=== PATIENT | female | born 1990 | race Caucasian/White ===

== ENCOUNTER 2023-11-23 05:30 | Inpatient (IN) | payer BC ==
[2023-11-22 11:04] LABS: Hematocrit 34.1 % (34.9-44.5); Hemoglobin 11.8 g/dL (12.0-15.5); Mean Corpuscular HGB CONC 34.6 g/dL (32.0-36.0); Mean Corpuscular Hemoglobin 32.2 pg (27.0-33.0); Mean Corpuscular Volume 92.9 fl (81.6-98.3); Mean Platelet Volume 12.2 fl (7.4-10.4); Platelet Count 201 10x3/uL (150-450); RBC Distribution Width 12.2 % (11.5-14.5); Red Blood Cell (RBC) Count 3.67 10x6/uL (3.90-5.03); White Blood Cell (WBC) Count 5.4 10x3/uL (3.5-10.5)
[2023-11-22 11:28] LABS: HBSAg Index 0.19 S/CO (0-0.99); Hep B Surf Ag Non-Reactive S/CO (NonReactive)
[2023-11-22 11:29] LABS: Syphilis Antibody Nonreactive (Nonreactive); Syphilis Antibody Index 0.04 S/CO (<1.00 Non-Reactive)
[~2023-11-23 05:30] MED LIST: Bicitra 30 ML UDCUP PO PRN; Carboprost 250 MCG/ML AMP IM PRN; Methylergonovine 0.2 MG/ML VIAL IM PRN; Misoprostol 200 MCG TAB PR PRN; Ondansetron PF 4 MG/2 ML Vial IVP PRN; Oxytocin 30 units/NS 500 ML 500 ML IV SCH; Promethazine HCl 25 MG/ML VIAL IM PRN; Tranexamic Acid 1,000 MG/10 ML VIAL IVP PRN; hydrALAZINE 20 MG/ML VIAL SLOW IVP PRN
[2023-11-23 05:55] VITALS: BMI 25.8
[2023-11-23] MEDS: Famotidine/PF 20 mg/2ml Vial SLOW IVP PRN (07:13)
[2023-11-23] MEDS: CEFAZOLIN 2 GM in Sodium Chloride 0.9% 100 ML IVPB SCH (07:13)
[2023-11-23] MEDS ORDERED: LEVOTHYROXINE SODIUM 175 MCG PO SCH (09:00)
[2023-11-23] MEDS ORDERED: HYDROcodone/Acetaminophen 5/325 mg Tablet PO PRN ×2 (09:08)
[2023-11-23] MEDS ORDERED: Lanolin Ointment 7 GM TUBE TOP PRN (09:08)
[2023-11-23] MEDS ORDERED: hydrALAZINE 20 MG/ML VIAL SLOW IVP PRN (09:08)
[2023-11-23] MEDS ORDERED: diphenhydrAMINE 25 MG CAP PO PRN (09:08)
[2023-11-23] MEDS ORDERED: Ondansetron PF 4 MG/2 ML Vial IVP PRN ×2 (09:14)
[2023-11-23] MEDS ORDERED: Promethazine HCl 25 MG SUPP PR PRN (09:14)
[2023-11-23] MEDS ORDERED: Naloxone HCl 0.4 mg/ml Vial IVP PRN ×2 (09:14)
[2023-11-23] MEDS ORDERED: fentaNYL 50 mcg/mL 1 mL Vial SLOW IVP PRN (09:14)
[2023-11-23] MEDS ORDERED: Moisturizing Cream (Eucerin) 113 GM JAR TOP PRN (09:14)
[2023-11-23] MEDS ORDERED: Promethazine HCl 25 MG/ML VIAL IM PRN (09:14)
[2023-11-23] MEDS ORDERED: Ketorolac Tromethamine 30 MG (1 mL) VIAL IVP PRN (09:14)
[2023-11-23] MEDS ORDERED: diphenhydrAMINE 50 MG/ML VIAL IVP PRN (09:14)
[2023-11-23] MEDS ORDERED: Meperidine HCl/PF 25 MG (1 mL) VIAL SLOW IVP PRN (09:14)
[2023-11-23] MEDS ORDERED: Naloxone HCl 0.4 mg/ml Vial IV PRN (09:14)
[2023-11-23] MEDS ORDERED: Communication Order-Pharmacy FS SCH (09:15)
[2023-11-23] MEDS ORDERED: Ketorolac Tromethamine 30 MG (1 mL) VIAL IVP SCH (09:15)
[2023-11-23] MEDS: Morphine PF 10 MG/10 ML VIAL ONE (09:19)
[2023-11-23] MEDS: Dexamethasone 4 mg/ml Vial ONE ×2 (09:20→09:22)
[2023-11-23] MEDS: Dexmedetomidine 200 MCG/2 ML VIAL ONE (09:20)
[2023-11-23] MEDS: Ketorolac Tromethamine 30 MG (1 mL) VIAL ONE (09:20)
[2023-11-23] MEDS: Ondansetron PF 4 MG/2 ML Vial ONE (09:21)
[2023-11-23] MEDS: Oxytocin 10 UNITS/ML VIAL ONE ×2 (09:21→09:22)
[2023-11-23] MEDS: diphenhydrAMINE 50 MG/ML VIAL ONE (09:22)
[2023-11-23] MEDS: Phenylephrine 40 MG/NS 250 ML 250 ML ONE (09:22)
[2023-11-23] MEDS: LEVOTHYROXINE 137 MCG PO SCH (10:46)
[2023-11-23] MEDS ORDERED: Ibuprofen 800 MG TAB PO SCH (14:00)
[2023-11-23] MEDS ORDERED: Acetaminophen 500 MG TAB PO PRN (16:44)
[2023-11-23] MEDS: Lactated Ringer's 1,000 ML IV SCH (18:42)
[2023-11-23] MEDS: Ibuprofen 600 MG TAB PO PRN (21:28)
[2023-11-24] MEDS: Docusate 100 MG CAP PO SCH (00:44)
[2023-11-24] MEDS: Simethicone Chewable 80 MG TAB PO PRN (04:51)
[2023-11-24 05:34] LABS: Hematocrit 26.2 % (34.9-44.5); Hemoglobin 8.8 g/dL (12.0-15.5); Mean Corpuscular HGB CONC 33.6 g/dL (32.0-36.0); Mean Corpuscular Hemoglobin 31.1 pg (27.0-33.0); Mean Corpuscular Volume 92.6 fl (81.6-98.3); Mean Platelet Volume 12.3 fl (7.4-10.4); Platelet Count 174 10x3/uL (150-450); Red Blood Cell (RBC) Count 2.83 10x6/uL (3.90-5.03); White Blood Cell (WBC) Count 10.9 10x3/uL (3.5-10.5)
[2023-11-24] MEDS: Boostrix 0.5 ML (Tdap) VIAL (>/=7 yrs of age) IM ONE (07:03)
[2023-11-24 15:12] LABS: Hematocrit 24.8 % (34.9-44.5); Hemoglobin 8.8 g/dL (12.0-15.5)
[2023-11-24] MEDS: Ibuprofen 800 MG TAB PO SCH (17:25)
[2023-11-24] MEDS: Acetaminophen 500 MG TAB PO SCH (17:27)
[2023-11-24] MEDS: HYDROcodone/Acetaminophen 5/325 mg Tablet PO PRN (17:31)
[2023-11-24] MEDS ORDERED: Ketorolac Tromethamine 30 MG (1 mL) VIAL IM PRN (18:13)
[2023-11-24] MEDS ORDERED: Ibuprofen 800 MG TAB PO SCH (23:59)
[2023-11-25] MEDS: Ibuprofen 800 MG TAB PO SCH (00:02)
[2023-11-25 05:42] LABS: #Basophils 0.1 10x3/uL (0.0-0.2); #Eosinphils 0.1 10x3/uL (0.0-0.5); #Monocytes 0.7 10x3/uL (0.0-1.1); #Neutrophils 4.6 10x3/uL (1.5-8.4); %Basophils 0.7 % (0.0-2.0); %Eosinophils 1.4 % (0.0-6.0); %Monocytes 8.5 % (0.0-10.0); Hematocrit 25.9 % (34.9-44.5); Hemoglobin 9.1 g/dL (12.0-15.5); Mean Corpuscular HGB CONC 35.1 g/dL (32.0-36.0); Mean Corpuscular Hemoglobin 32.2 pg (27.0-33.0); Mean Corpuscular Volume 91.5 fl (81.6-98.3); Mean Platelet Volume 11.5 fl (7.4-10.4); Platelet Count 205 10x3/uL (150-450); RBC Distribution Width 12.3 % (11.5-14.5); Red Blood Cell (RBC) Count 2.83 10x6/uL (3.90-5.03); White Blood Cell (WBC) Count 7.7 10x3/uL (3.5-10.5)
[2023-11-25 06:03] LABS: ALT (SGPT) 14 U/L (8-55); AST (SGOT) 39 U/L (5-34); Albumin 2.9 g/dL (3.5-5.0); Alkaline Phosphatase 95 U/L (40-110); Anion Gap 12 mmol/L (10-20); BUN (Urea Nitrogen) 12 mg/dL (7.0-18.7); Bilirubin, Total Less than 0.2 mg/dL (0.2-1.2); Calc. Creatinine Clearance 118 mL/min (70-130); Carbon Dioxide 26 mmol/L (22-29); Chloride 102 mmol/L (98-107); Estimated GFR 90; Globulin 2.4 g/dL (2.4-3.5); Glucose 105 mg/dL (70-105); Potassium 4.5 mmol/L (3.5-5.1); Protein, Total 5.3 g/dL (6.0-8.3); Sodium 135 mmol/L (136-145)
[2023-11-25] MEDS: LEVOTHYROXINE PO SCH (07:20)
[2023-11-25 08:51] LABS: Creatinine, Urine 40.68 mg/dL (47-110); Protein, Urine Random Quant Less than 10 mg/dL (1-14)
[2023-11-25 19:35] VITALS: TEMP 98.3
[2023-11-26 09:07] VITALS: BP 139/78
== END 2023-11-26 14:05 | disposition home or self-care (01) | DRG 786 ==
LOC: CSHLD 05:30 → CSHPED 11:28
PROVIDERS: ADMIT Student in an Organized Health Care Education/Training Program; ATTEND Student in an Organized Health Care Education/Training Program
PROC: 10D00Z1 Extraction of Products of Conception, Low, Open Approach (ICD-10-PCS; principal; 2023-11-23)
DX: O34.211 Maternal care for low transverse scar from previous cesarean delivery (principal); O24.02 Pre-existing type 1 diabetes mellitus, in childbirth; O71.5 Other obstetric injury to pelvic organs; O36.63X0 Maternal care for excessive fetal growth, third trimester, not applicable or unspecified; E10.9 Type 1 diabetes mellitus without complications; Z3A.37 37 weeks gestation of pregnancy; Z37.0 Single live birth
CPT/HCPCS: 36415; 51702; 76815; 80053; 82570; 84156; 85025; 85027; 86780; 86850; 86900; 86901; 87340; J1100; J1200; J1885; J2274; J2405; J2590; J3490; Q9968; S0028